=== PATIENT | female | born 1980 | race American Indian/Alaskan Native ===

== ENCOUNTER 2017-08-15 08:00 | Day surgery (SDC) | payer MEDICAID ==
[2017-08-15] MEDS ORDERED: NACL 0.9% 1000 ML 1,000 ML IV SCH (09:00)
[2017-08-15] MEDS ORDERED: XYLOCAINE MPF 2% ONE (09:30)
[2017-08-15] MEDS ORDERED: XYLOCAINE 1% 20 mL ONE (09:58)
[2017-08-15] MEDS ORDERED: DIPRIVAN 10 MG/ML IV ONE ×2 (09:58→14:50)
--- NOTE | 2017-08-15 10:10 | Operative Report ---
Operative Report Operative Report: OPERATIVE REPORT - EGD DATE 08/15/17 SURGERY: Upper endoscopy. SURGEON: Adriana Whipple M.D. PSYCH NURSE: Tomi Jackman DO PRE OP DX: dyspepsia POST OP DX:same, small hiatal hernia TYPE OF ANESTHESIA: MAC. ESTIMATED BLOOD LOSS: None. COMPLICATIONS: None. SPECIMENS REMOVED: None. FINDINGS: 1. Small hiatal hernia. 2. Otherwise, normal esophagus, stomach and first portion of duodenum. INDICATIONS:INDICATION FOR PROCEDURE: Patient is a 36-year-old female with a long history of morbid obesity. She is planned to have a weight loss procedure and is here for preoperative planning EGD to ensure no structural abnormalities are present in her stomach. She also has a hx of dyspepsia. PROCEDURE DETAILS: After consent was reviewed, patient was taken back to the operating room where patient was placed in the left lateral decubitus position and a bite block was placed in the mouth. After a time-out was called, MAC anesthesia was initiated. I then passed the endoscope into her oropharynx, into her esophagus, visualized the entire esophagus, which was all within normal limits. I then visualized the stomach and the first portion of the duodenum and there were no abnormalities I could clearly visualize. I then retroflexed the scope in the stomach and visualized the hiatus and I could see a small hiatal hernia. I then desufflated the stomach and removed the endoscope. Patient tolerated procedure well and was transferred to recovery room in good and stable condition.
--- NOTE | 2017-08-15 10:11 | Discharge Summary ---
Providers - Providers Attending physician: BRANDON ANGULO Primary care physician: LETICIA HUYNH Hospitalization Procedures: egd Hospital course: 36 y.o. F presented for EGD. She tolerated the procedure well and was discharged the same day. Disposition: - TO HOME OR SELFCARE Core Measure Documentation - Palliative Care Palliative Care/ Comfort Measures: Not Applicable - Core Measures Any of the following diagnoses?: none Exam - Physical Exam Narrative exam: no change from prior - Constitutional Vitals: Temp Pulse Resp BP Pulse Ox 98.4 F 79 16 134/87 100 08/15/17 09:19 08/15/17 09:19 08/15/17 09:19 08/15/17 09:19 08/15/17 09:19 Plan Activity: no restrictions Additional Instructions: Follow up for surgery Follow up with: LETICIA HUYNH MD [Primary Care Provider] - 7 Days
--- NOTE | 2017-08-15 10:21 | Anesthesia Consultation ---
Anesthesia Consult and Med Hx Date of service: 08/15/17 - Airway Anesthetic Teeth Evaluation: Good ROM Head & Neck: Adequate Mental/Hyoid Distance: Adequate Mallampati Class: Class II Intubation Access Assessment: Probably Good - Pulmonary Exam CTA: Yes - Cardiac Exam Cardiac Exam: RRR - Pre-Operative Health Status ASA Pre-Surgery Classification: ASA3 Proposed Anesthetic Plan: MAC - Pulmonary Hx Sleep Apnea: Yes - Cardiovascular System Hx Hypertension: Yes - Endocrine Hx Non-Insulin Dependent Diabetes: Yes (pre DM) - Other Systems Hx Obesity: Yes
--- NOTE | 2017-08-15 10:26 | Anesthesia Day of Surgery ---
Anesthesia Day of Surgery - Day of Surgery Patient Examined: Yes Patient H&P Reviewed: Yes Patient is NPO: Yes Jh's Test: N/A
[2017-08-15 10:43] VITALS: BP 115/67
== END 2017-08-15 08:01 | disposition home or self-care (01) ==
LOC: GIO 08:00
PROVIDERS: ATTEND Surgery
DX: K30 Functional dyspepsia (principal); K44.9 Diaphragmatic hernia without obstruction or gangrene; E66.01 Morbid (severe) obesity due to excess calories; G47.33 Obstructive sleep apnea (adult) (pediatric); I10 Essential (primary) hypertension; Z68.43 Body mass index [BMI] 50.0-59.9, adult
CPT/HCPCS: 43235; 81025; 82962; J2704; J7030